=== PATIENT | female | born 1985 | race Caucasian/White ===

== ENCOUNTER 2017-08-14 09:12 | Inpatient (IN) | payer OTHER ==
[2017-08-14 09:29] VITALS: BMI 27.4
--- NOTE | 2017-08-14 09:44 | HP ---
COWS - Scale Resting Pulse: 0= [place] 80 or Below Sweatin= Chills/Flushing Restless Observation: 0= Sits Still Pupil Size: 0= Normal to Room Light Bone or Joint Aches: 1= Mild Discomfort Runny Nose/ Eye Tearin= Runny Nose/Eyes GI Upset > 30mins: 1= Stomach Cramp Tremor Observation: 1= Tremor [place], Not Seen Yawning Observation: 1= 1-2x During Session Anxiety or Irritability: 1=Feels Anxious/Irritable Goose Flesh Skin: 0=Smooth Skin COWS Score: 8 Admission ROS S - HPI Chief Complaint: I'm here for detox Allergies/Adverse Reactions: Allergies Allergy/AdvReac Type Severity Reaction Status Date / Time No Known Allergies Allergy Verified 08/14/17 09:38 History of Present Illness: 31 yo woman here for detox from heroin, also using crack and marijuana. Denies drinking alcohol. One drug related seizure. Tried suboxone program but 'not for me'. First time here for detox but has been elsewhere last time she thinks was in 2014 in [place]. Exam Limitations: Clinical Condition - Ebola screening Have you traveled outside of the country in the last 21 days: No Have you had contact with anyone from an Ebola affected area: No Have you been sick,other than usual withdrawal symptoms: No Do you have a fever: No - Review of Systems Constitutional: Chills, Night Sweats, Changes in sleep EENT: reports: Nose Congestion Respiratory: reports: No Symptoms reported Cardiac: reports: No Symptoms Reported GI: reports: Nausea, Indigestion, Abdominal cramping : reports: No Symptoms Reported Musculoskeletal: reports: Back Pain, Joint Pain, Muscle Pain Integumentary: reports: No Symptoms Reported Neuro: reports: Headache, Seizure Endocrine: reports: No Symptoms Reported Hematology: reports: No Symptoms Reported Psychiatric: reports: Judgement Intact, Mood/Affect Appropiate, Orientated x3, Anxious Other Systems: Reviewed and Negative Patient History - Patient Medical History Hx Anemia: No Hx Asthma: Yes Hx Chronic Obstructive Pulmonary Disease (COPD): No Hx Cancer: No Hx Cardiac Disorders: No Hx Congestive Heart Failure: No Hx Hypertension: No Hx Hypercholesterolemia: No Hx Pacemaker: No HX Cerebrovascular Accident: No Hx Seizures: Yes (drug related 2011) Hx Dementia: No Hx Diabetes: No Hx Gastrointestinal Disorders: No Hx Liver Disease: No Hx Genitourinary Disorders: Yes (prone to UTI due to ureter 'kink') Hx Sexually Transmitted Disorders: No Hx Renal Disease (ESRD): No Hx Thyroid Disease: No Hx Human Immunodeficiency Virus (HIV): No Hx Hepatitis C: No Hx Depression: Yes (history of meds, PTSD) Hx Suicide Attempt: No Hx Bipolar Disorder: No Hx Schizophrenia: No - Patient Surgical History Hx Genitourinary Surgery: Yes (D&C) - PPD History Previous Implant?: Yes Documented Results: Positive w/o proof (never treated, states had CXR which was normal) PPD to be Administered?: No - Reproductive History Patient is a Female of Child Bearing Age (11 -55 yrs old): Yes - Smoking Cessation Smoking history: Current every day smoker Have you smoked in the past 12 months: Yes Aproximately how many cigarettes per day: 10 Initiated information on smoking cessation: Yes 'Breaking Loose' booklet given: 08/14/17 (give on floor) - Substance & Tx. History Hx Alcohol Use: No Hx Substance Use: Yes Substance Use Type: Cocaine, Heroin, Marijuana Hx Substance Use Treatment: Yes (detox, suboxone, rehab) - Substances Abused Heroin Route: Inhalation Frequency: Daily Amount used: 5 bags Age of first use: 23 Date of Last Use: 08/13/17 Crack Route: Smoking Frequency: 1-2 times per week Amount used: 2 bags Age of first use: 31 Date of Last Use: 08/09/17 Marijuana/Hashish Route: Smoking Frequency: Daily Amount used: $5.00 Age of first use: 21 Date of Last Use: 08/13/17 Family Disease History - Family Disease History Family Disease History: Diabetes: Father (living, drug use), Heart Disease: Father, Other: Father, Mother (living,), Sister (one ), Son (two - ages 15, 3), Daughter (two - ages 5, 9) Admission Physical Exam S - Vital Signs Vital Signs: Vital Signs - 24 hr 08/14/17 09:27 Temperature 97.2 F L Pulse Rate 59 L Respiratory 20 Rate Blood Pressure 125/71 - Physical General Appearance: Yes: Nourished, Appropriately Dressed, Moderate Distress HEENTM: Yes: Hearing grossly Normal, Normocephalic, Normal Voice, Pharynx Normal , Rhinorrhea Respiratory: Yes: Normal Breath Sounds, No Respiratory Distress Neck: Yes: No masses,lesions,Nodules, Supple Breast: Yes: Breast Exam Deferred Cardiology: Yes: Regular Rhythm, Regular Rate Abdominal: Yes: Soft Genitourinary: Yes: Within Normal Limits Back: Yes: Decreased Range of Motion Musculoskeletal: Yes: full range of Motion, Gait Steady Extremities: Yes: Normal Inspection, Normal Range of Motion, Non-Tender Neurological: Yes: Fully Oriented, Alert, Normal Mood/Affect, Normal Response Integumentary: Yes: Normal Color, Dry, Warm Lymphatic: Yes: Within Normal Limits - Diagnostic (1) Opiate dependence Current Visit: Yes Status: Chronic Qualifiers: Substance use status: uncomplicated Qualified Code(s): F11.20 - Opioid dependence, uncomplicated; F11.20 - Opioid dependence, uncomplicated; F11.20 - Opioid dependence, uncomplicated (2) Cocaine dependence Current Visit: Yes Status: Chronic Qualifiers: Substance use status: uncomplicated Qualified Code(s): F14.20 - Cocaine dependence, uncomplicated; F14.20 - Cocaine dependence, uncomplicated; F14.20 - Cocaine dependence, uncomplicated (3) Cannabis dependence Current Visit: Yes Status: Chronic (4) Asthma Current Visit: Yes Status: Chronic Qualifiers: Asthma severity: mild Asthma persistence: intermittent Asthma complication type: uncomplicated Qualified Code(s): J45.20 - Mild intermittent asthma, uncomplicated; J45.20 - Mild intermittent asthma, uncomplicated; J45.20 - Mild intermittent asthma, uncomplicated (5) Fibromyalgia Current Visit: Yes Status: Chronic (6) History of seizure Current Visit: Yes Status: Chronic (7) Nicotine dependence Current Visit: Yes Status: Chronic Qualifiers: Nicotine product type: cigarettes Substance use status: uncomplicated Qualified Code(s): F17.210 - Nicotine dependence, cigarettes, uncomplicated; F17.210 - Nicotine dependence, cigarettes, uncomplicated (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
[2017-08-14] MEDS ORDERED: guaiFENesin/D-METHORPHAN HB 10 ML UNIT-DOSE CUPS PO PRN (09:52)
[2017-08-14] MEDS ORDERED: ACETAMINOPHEN 325 MG TABLET (FP) PO PRN (09:52)
[2017-08-14] MEDS ORDERED: MENTHOL/PHENOL 1 EACH UD MM PRN (09:52)
[2017-08-14] MEDS ORDERED: MAGNESIUM HYDROX 2400MG/30ML ORAL SUSPENSION 30 ML CUP PO PRN (09:52)
[2017-08-14] MEDS ORDERED: MAGNESIUM CITRATE 300 ML BOTTLE PO PRN (09:52)
[2017-08-14] MEDS ORDERED: P-EPHED 60MG/TRIPROLIDI 2.5MG TABLET PO PRN (09:52)
[2017-08-14] MEDS ORDERED: LOPERAMIDE HCL 2 MG CAPSULE PO PRN (09:52)
[2017-08-14] MEDS ORDERED: MAG HYDROX/AL HYDROX/SIMETH 30 ML UNIT-DOSE CUP PO PRN (09:52)
[2017-08-14] MEDS ORDERED: METHADONE HCL 10 MG TABLET (FOR DETOX USE ONLY) PO ONE ×2 (10:30→23:00)
[2017-08-14] MEDS: PRENATAL VITAMINS W/ FOLIC ACID TABLET (FP) PO SCH (11:46)
[2017-08-14] MEDS: diazePAM 5 MG TABLET PO PRN ×2 (11:46→17:04)
[2017-08-14] MEDS: ALBUTEROL SO4 18 GM HFA INHALER IH SCH ×4 (11:47→23:10)
[2017-08-14] MEDS: IBUPROFEN 400 MG TABLET (FP) PO PRN (11:52)
[2017-08-14] MEDS: NICOTINE POLACRILEX 4 MG GUM BC PRN (11:53)
[2017-08-14] MEDS: NICOTINE 21 MG/24 HOURS TOPICAL PATCH TD SCH (15:53)
[2017-08-14 16:57] LABS: URINE APPEARANCE SLCLOUDY; URINE BILIRUBIN NEGATIVE (NEGATIVE); URINE BLOOD NEGATIVE (NEGATIVE); URINE COLOR YELLOW; URINE GLUCOSE (UA) NEGATIVE (NEGATIVE); URINE KETONE NEGATIVE (NEGATIVE); URINE NITRITE NEGATIVE (NEGATIVE); URINE PROTEIN NEGATIVE (NEGATIVE); URINE UROBILINOGEN NEGATIVE mg/dL (0.2-1.0)
[2017-08-14 21:53] LABS: URINE LEUK ESTERASE Negative (NEGATIVE)
[2017-08-14] MEDS: THIAMINE HCL 100 MG TABLET (FP) PO SCH (23:10)
[2017-08-14] MEDS: diphenhydrAMINE HCL 50 MG CAPSULE PO PRN (23:12)
[2017-08-15] MEDS: ALBUTEROL SO4 18 GM HFA INHALER IH SCH ×6 (03:06→22:33)
[2017-08-15] MEDS: diazePAM 5 MG TABLET PO PRN ×4 (07:10→22:32)
--- NOTE | 2017-08-15 09:13 | EKG ---
Test Reason : Blood Pressure : / mmHG Vent. Rate : 055 BPM Atrial Rate : 055 BPM P-R Int : 136 ms QRS Dur : 070 ms QT Int : 420 ms P-R-T Axes : 050 034 035 degrees QTc Int : 401 ms SINUS BRADYCARDIA WITH SINUS ARRHYTHMIA SEPTAL INFARCT , AGE UNDETERMINED ABNORMAL ECG NO PREVIOUS ECGS AVAILABLE Confirmed by MLIAGROS HER MD ([id number]) on 08/15/2017 9:13:14 AM Referred By: Confirmed By:MILAGROS HER MD
[2017-08-15] MEDS ORDERED: METHADONE HCL 10 MG TABLET (FOR DETOX USE ONLY) PO ONE (10:00)
[2017-08-15] MEDS: NICOTINE 21 MG/24 HOURS TOPICAL PATCH TD SCH (10:47)
[2017-08-15] MEDS: PRENATAL VITAMINS W/ FOLIC ACID TABLET (FP) PO SCH (10:47)
[2017-08-15] MEDS: IBUPROFEN 400 MG TABLET (FP) PO PRN ×2 (10:50→18:42)
[2017-08-15 11:07] LABS: MCH 31.9 pg (25.7-33.7); MCHC 33.4 g/dl (32.0-36.0); MEAN CELL VOLUME 95.5 fl (80-96); MEAN PLT VOLUME 10.4 fl (7.5-11.1); PLATELET COUNT 245 K/MM3 (134-434); WHITE BLOOD COUNT 6.5 K/mm3 (4.0-10.0)
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
[2017-08-15 11:18] LABS: ALK PHOS 41 U/L (45-117); ANION GAP 6 (8-16); BILIRUBIN,TOTAL 0.4 mg/dL (0.2-1.0); CALCIUM 9.2 mg/dL (8.5-10.1); CO2 28 mmol/L (21-32); GLUCOSE,RANDOM 80 mg/dL (74-106); SGOT/AST 8 U/L (15-37); SGPT/ALT 20 U/L (12-78); TOT PROT 6.9 g/dl (6.4-8.2)
[2017-08-15] MEDS ORDERED: FLU VACCINE QUAD 60 MCG/0.5 ML (MDV 17-18) IM ONE (12:00)
--- NOTE | 2017-08-15 14:51 | PN ---
[facility] COWS - Scale Resting Pulse: 0= [place] 80 or Below Sweatin= Chills/Flushing Restless Observation: 3= Extraneous Movement Pupil Size: 1= Pupils >than Normal Bone or Joint Aches: 2= Severe Diffuse Aches Runny Nose/ Eye Tearin= Runny Nose/Eyes GI Upset > 30mins: 2= Nausea/Diarrhea Tremor Observation of Outstretched Hands: 2= Slight Tremor Visible Yawning Observation: 1= 1-2x During Session Anxiety or Irritability: 2=Irritable/Anxious Goose Flesh Skin: 0=Smooth Skin COWS Score: 16 S Progress Note (SOAP) Subjective: ALERT,IRRITABLE,ANXIOUS,INTERRUPTED SLEEP,TREMOR,PAIN IN THE BODY AND BACK Objective: 08/15/17 14:47 Vital Signs Temperature 98 F 08/15/17 13:56 Pulse Rate 62 08/15/17 13:56 Respiratory Rate 16 08/15/17 13:56 Blood Pressure 116/69 08/15/17 13:56 O2 Sat by Pulse Oximetry (%) EKG SINUS BRADYCARDIA WITH SINUS ARRHYTHMIA 59/MIN INVERTED T IN V2 NO CHEST PAIN,NO SOB,NO DIZZINESS Laboratory Last Values WBC 6.5 K/mm3 (4.0-10.0) 08/15/17 06:14 RBC 4.85 M/mm3 (3.60-5.2) 08/15/17 06:14 Hgb 15.5 GM/dL (10.7-15.3) H 08/15/17 06:14 Hct 46.3 % (32.4-45.2) H 08/15/17 06:14 MCV 95.5 fl (80-96) 08/15/17 06:14 MCH 31.9 pg (25.7-33.7) 08/15/17 06:14 MCHC 33.4 g/dl (32.0-36.0) 08/15/17 06:14 RDW 13.0 % (11.6-15.6) 08/15/17 06:14 Plt Count 245 K/MM3 (134-434) 08/15/17 06:14 MPV 10.4 fl (7.5-11.1) 08/15/17 06:14 Sodium 141 mmol/L (136-145) 08/15/17 06:14 Potassium 4.1 mmol/L (3.5-5.1) 08/15/17 06:14 Chloride 107 mmol/L (98-107) 08/15/17 06:14 Carbon Dioxide 28 mmol/L (21-32) 08/15/17 06:14 Anion Gap 6 (8-16) L 08/15/17 06:14 BUN 10 mg/dL (7-18) 08/15/17 06:14 Creatinine 1.0 mg/dL (0.55-1.02) 08/15/17 06:14 Creat Clearance w eGFR > 60 (>60) 08/15/17 06:14 Random Glucose 80 mg/dL (74-106) 08/15/17 06:14 Calcium 9.2 mg/dL (8.5-10.1) 08/15/17 06:14 Total Bilirubin 0.4 mg/dL (0.2-1.0) 08/15/17 06:14 AST 8 U/L (15-37) L 08/15/17 06:14 ALT 20 U/L (12-78) 08/15/17 06:14 Alkaline Phosphatase 41 U/L (45-117) L 08/15/17 06:14 Total Protein 6.9 g/dl (6.4-8.2) 08/15/17 06:14 Albumin 4.0 g/dl (3.4-5.0) 08/15/17 06:14 Urine Color Yellow 08/14/17 11:43 Urine Appearance Slcloudy 08/14/17 11:43 Urine pH 6.0 (5.0-8.0) 08/14/17 11:43 Ur Specific [place] 1.020 (1.005-1.025) 08/14/17 11:43 Urine Protein Negative (NEGATIVE) 08/14/17 11:43 Urine Glucose (UA) Negative (NEGATIVE) 08/14/17 11:43 Urine Ketones Negative (NEGATIVE) 08/14/17 11:43 Urine Blood Negative (NEGATIVE) 08/14/17 11:43 Urine Nitrite Negative (NEGATIVE) 08/14/17 11:43 Urine Bilirubin Negative (NEGATIVE) 08/14/17 11:43 Urine Urobilinogen Negative mg/dL (0.2-1.0) 08/14/17 11:43 Ur Leukocyte Esterase Negative (NEGATIVE) 08/14/17 11:43 RPR Titer Nonreactive (NONREACTIVE) 08/15/17 06:14 Assessment: 08/15/17 14:50 WITHDRAWAL SYMPTOM Plan: CONTINUE DETOX
[2017-08-15] MEDS: ZOLPIDEM TARTRATE 5 MG TABLET PO PRN (22:32)
[2017-08-15] MEDS: THIAMINE HCL 100 MG TABLET (FP) PO SCH (22:33)
[2017-08-16] MEDS: ALBUTEROL SO4 18 GM HFA INHALER IH SCH ×6 (02:34→22:18)
[2017-08-16] MEDS: diazePAM 5 MG TABLET PO PRN ×5 (02:45→22:18)
--- NOTE | 2017-08-16 08:59 | PN ---
S COWS - Scale Resting Pulse: 0= [place] 80 or Below Sweatin=Flushed/Facial Moisture Restless Observation: 1= Difficult to Sit Still Pupil Size: 0= Normal to Room Light Bone or Joint Aches: 2= Severe Diffuse Aches Runny Nose/ Eye Tearin= Runny Nose/Eyes GI Upset > 30mins: 0= None Tremor Observation of Outstretched Hands: 2= Slight Tremor Visible Yawning Observation: 2= >3x During Session Anxiety or Irritability: 2=Irritable/Anxious Goose Flesh Skin: 3=Piloerection COWS Score: 16 S Progress Note (SOAP) Subjective: interrupted sleep chronic pain to back sweats shakes agitation anxiety Objective: 08/16/17 08:56 Vital Signs Temperature 97.9 F 08/16/17 06:20 Pulse Rate 56 L 08/16/17 06:20 Respiratory Rate 16 08/16/17 06:20 Blood Pressure 99/66 08/16/17 06:20 O2 Sat by Pulse Oximetry (%) Laboratory Tests 08/14/17 08/15/17 08/15/17 11:43 06:14 06:14 WBC 6.5 RBC 4.85 Hgb 15.5 H Hct 46.3 H MCV 95.5 MCH 31.9 MCHC 33.4 RDW 13.0 Plt Count 245 MPV 10.4 Sodium 141 Potassium 4.1 Chloride 107 Carbon Dioxide 28 Anion Gap 6 L BUN 10 Creatinine 1.0 Creat Clearance w eGFR > 60 Random Glucose 80 Calcium 9.2 Total Bilirubin 0.4 AST 8 L ALT 20 Alkaline Phosphatase 41 L Total Protein 6.9 Albumin 4.0 Urine Color Yellow Urine Appearance Slcloudy Urine pH 6.0 Ur Specific [place] 1.020 Urine Protein Negative Urine Glucose (UA) Negative Urine Ketones Negative Urine Blood Negative Urine Nitrite Negative Urine Bilirubin Negative Urine Urobilinogen Negative Ur Leukocyte Esterase Negative RPR Titer 08/15/17 06:14 WBC RBC Hgb Hct MCV MCH MCHC RDW Plt Count MPV Sodium Potassium Chloride Carbon Dioxide Anion Gap BUN Creatinine Creat Clearance w eGFR Random Glucose Calcium Total Bilirubin AST ALT Alkaline Phosphatase Total Protein Albumin Urine Color Urine Appearance Urine pH Ur Specific [place] Urine Protein Urine Glucose (UA) Urine Ketones Urine Blood Urine Nitrite Urine Bilirubin Urine Urobilinogen Ur Leukocyte Esterase RPR Titer Nonreactive aaox3 ambulating no acute distress Assessment: 08/16/17 08:58 withdrawal sx Plan: continue detox increase fluids flexiril prn motrin 800mg lidocaine patch
[2017-08-16] MEDS ORDERED: METHADONE HCL 5 MG TABLET (FOR DETOX USE ONLY) PO ONE (10:00)
[2017-08-16] MEDS: IBUPROFEN 400 MG TABLET (FP) PO PRN ×2 (10:26→20:27)
[2017-08-16] MEDS: PRENATAL VITAMINS W/ FOLIC ACID TABLET (FP) PO SCH (10:26)
[2017-08-16] MEDS: NICOTINE 21 MG/24 HOURS TOPICAL PATCH TD SCH (10:27)
[2017-08-16] MEDS: CYCLOBENZAPRINE HCL 10 MG TABLET (FP) PO PRN ×2 (10:27→22:16)
[2017-08-16] MEDS: LIDOCAINE 5% TOPICAL PATCH TP SCH (10:27)
[2017-08-16] MEDS: NICOTINE POLACRILEX 4 MG GUM BC PRN (12:37)
[2017-08-16] MEDS: hydrOXYzine PAMOATE 50 MG CAPSULE (FP) PO PRN (13:08)
[2017-08-16] MEDS: LIDOCAINE PATCH REMOVAL MC SCH (21:26)
[2017-08-16] MEDS: ZOLPIDEM TARTRATE 5 MG TABLET PO PRN (22:16)
[2017-08-16] MEDS: THIAMINE HCL 100 MG TABLET (FP) PO SCH (22:18)
[2017-08-17] MEDS: CYCLOBENZAPRINE HCL 10 MG TABLET (FP) PO PRN ×3 (05:46→22:06)
[2017-08-17] MEDS: ALBUTEROL SO4 18 GM HFA INHALER IH SCH ×5 (05:46→22:08)
[2017-08-17] MEDS: diazePAM 5 MG TABLET PO PRN (05:46)
[2017-08-17] MEDS ORDERED: METHADONE HCL 5 MG TABLET (FOR DETOX USE ONLY) PO ONE (10:00)
[2017-08-17] MEDS: PRENATAL VITAMINS W/ FOLIC ACID TABLET (FP) PO SCH (10:47)
[2017-08-17] MEDS: LIDOCAINE 5% TOPICAL PATCH TP SCH (10:47)
[2017-08-17] MEDS: NICOTINE 21 MG/24 HOURS TOPICAL PATCH TD SCH (10:48)
[2017-08-17] MEDS: IBUPROFEN 400 MG TABLET (FP) PO PRN ×2 (10:49→22:07)
--- NOTE | 2017-08-17 12:54 | PN ---
[facility] Progress Note (SOAP) Subjective: Patient states " I am doing fine and I want to go home tomorrow." Objective: 08/17/17 13:21 Vital Signs Temperature 96.8 F L 08/17/17 10:00 Pulse Rate 70 08/17/17 10:00 Respiratory Rate 18 08/17/17 10:00 Blood Pressure 104/69 08/17/17 10:00 O2 Sat by Pulse Oximetry (%) Laboratory Last Values WBC 6.5 K/mm3 (4.0-10.0) 08/15/17 06:14 RBC 4.85 M/mm3 (3.60-5.2) 08/15/17 06:14 Hgb 15.5 GM/dL (10.7-15.3) H 08/15/17 06:14 Hct 46.3 % (32.4-45.2) H 08/15/17 06:14 MCV 95.5 fl (80-96) 08/15/17 06:14 MCH 31.9 pg (25.7-33.7) 08/15/17 06:14 MCHC 33.4 g/dl (32.0-36.0) 08/15/17 06:14 RDW 13.0 % (11.6-15.6) 08/15/17 06:14 Plt Count 245 K/MM3 (134-434) 08/15/17 06:14 MPV 10.4 fl (7.5-11.1) 08/15/17 06:14 Sodium 141 mmol/L (136-145) 08/15/17 06:14 Potassium 4.1 mmol/L (3.5-5.1) 08/15/17 06:14 Chloride 107 mmol/L (98-107) 08/15/17 06:14 Carbon Dioxide 28 mmol/L (21-32) 08/15/17 06:14 Anion Gap 6 (8-16) L 08/15/17 06:14 BUN 10 mg/dL (7-18) 08/15/17 06:14 Creatinine 1.0 mg/dL (0.55-1.02) 08/15/17 06:14 Creat Clearance w eGFR > 60 (>60) 08/15/17 06:14 Random Glucose 80 mg/dL (74-106) 08/15/17 06:14 Calcium 9.2 mg/dL (8.5-10.1) 08/15/17 06:14 Total Bilirubin 0.4 mg/dL (0.2-1.0) 08/15/17 06:14 AST 8 U/L (15-37) L 08/15/17 06:14 ALT 20 U/L (12-78) 08/15/17 06:14 Alkaline Phosphatase 41 U/L (45-117) L 08/15/17 06:14 Total Protein 6.9 g/dl (6.4-8.2) 08/15/17 06:14 Albumin 4.0 g/dl (3.4-5.0) 08/15/17 06:14 Urine Color Yellow 08/14/17 11:43 Urine Appearance Slcloudy 08/14/17 11:43 Urine pH 6.0 (5.0-8.0) 08/14/17 11:43 Ur Specific [place] 1.020 (1.005-1.025) 08/14/17 11:43 Urine Protein Negative (NEGATIVE) 08/14/17 11:43 Urine Glucose (UA) Negative (NEGATIVE) 08/14/17 11:43 Urine Ketones Negative (NEGATIVE) 08/14/17 11:43 Urine Blood Negative (NEGATIVE) 08/14/17 11:43 Urine Nitrite Negative (NEGATIVE) 08/14/17 11:43 Urine Bilirubin Negative (NEGATIVE) 08/14/17 11:43 Urine Urobilinogen Negative mg/dL (0.2-1.0) 08/14/17 11:43 Ur Leukocyte Esterase Negative (NEGATIVE) 08/14/17 11:43 RPR Titer Nonreactive (NONREACTIVE) 08/15/17 06:14 Assessment: 08/17/17 13:24 Heroin withdrawal symptoms Plan: Continue detox
[2017-08-17] MEDS: hydrOXYzine PAMOATE 50 MG CAPSULE (FP) PO PRN (13:57)
[2017-08-17] MEDS: ZOLPIDEM TARTRATE 5 MG TABLET PO PRN (21:28)
[2017-08-17] MEDS: LIDOCAINE PATCH REMOVAL MC SCH (22:07)
[2017-08-17] MEDS: THIAMINE HCL 100 MG TABLET (FP) PO SCH (22:08)
[2017-08-17 22:58] VITALS: TEMP 97.5
[2017-08-18] MEDS: diphenhydrAMINE HCL 50 MG CAPSULE PO PRN (01:23)
[2017-08-18] MEDS: ALBUTEROL SO4 18 GM HFA INHALER IH SCH ×2 (01:48→07:02)
[2017-08-18] MEDS: hydrOXYzine PAMOATE 50 MG CAPSULE (FP) PO PRN (05:25)
[2017-08-18 06:24] VITALS: BP 95/67; PULSE 88
[2017-08-18] MEDS ORDERED: METHADONE HCL 5 MG TABLET (FOR DETOX USE ONLY) PO SCH (07:15)
--- NOTE | 2017-08-18 09:27 | DS ---
[facility] Detox Discharge Summary Admission Date: 08/14/17 Discharge Date: 08/18/17 - History Present History: Cannabis Dependence, Cocaine Dependence, Opioid Dependence - Physical Exam Results Vital Signs: Vital Signs Temperature 97.5 F L 08/18/17 06:00 Pulse Rate 88 08/18/17 06:00 Respiratory Rate 18 08/18/17 06:00 Blood Pressure 95/67 08/18/17 06:00 O2 Sat by Pulse Oximetry (%) - Treatment Hospital Course: Detox Protocol Followed, Detoxed Safely, Responded well, Discharged Condition Good, Rehab Referral Accepted - Medication Discharge Medications: Ambulatory Orders Albuterol Sulfate Inhaler - [Ventolin Hfa Inhaler -] 2 inh PO Q4H 08/14/17 - Diagnosis (1) Dysthymia Status: Acute (2) Opioid dependence with withdrawal Status: Chronic (3) PTSD (post-traumatic stress disorder) Status: Acute (4) Substance-induced anxiety disorder Status: Acute (5) Substance-induced sleep disorder Status: Acute (6) Asthma Status: Chronic Qualifiers: Asthma severity: mild Asthma persistence: intermittent Asthma complication type: uncomplicated Qualified Code(s): J45.20 - Mild intermittent asthma, uncomplicated; J45.20 - Mild intermittent asthma, uncomplicated; J45.20 - Mild intermittent asthma, uncomplicated (7) Cannabis dependence Status: Chronic (8) Cocaine dependence Status: Chronic Qualifiers: Substance use status: uncomplicated Qualified Code(s): F14.20 - Cocaine dependence, uncomplicated; F14.20 - Cocaine dependence, uncomplicated; F14.20 - Cocaine dependence, uncomplicated (9) Fibromyalgia Status: Chronic (10) History of seizure Status: Chronic (11) Nicotine dependence Status: Chronic Qualifiers: Nicotine product type: cigarettes Substance use status: uncomplicated Qualified Code(s): F17.210 - Nicotine dependence, cigarettes, uncomplicated; F17.210 - Nicotine dependence, cigarettes, uncomplicated (12) Opiate dependence Status: Chronic Qualifiers: Substance use status: uncomplicated Qualified Code(s): F11.20 - Opioid dependence, uncomplicated; F11.20 - Opioid dependence, uncomplicated; F11.20 - Opioid dependence, uncomplicated (13) PPD positive Status: Chronic - AMA Did Patient Leave Against Medical Advice: No
[2017-08-18] MEDS ORDERED: METHADONE HCL 10 MG TABLET (FOR DETOX USE ONLY) PO ONE (10:00)
[2017-08-19] MEDS ORDERED: METHADONE HCL 5 MG TABLET (FOR DETOX USE ONLY) PO ONE (06:00)
== END 2017-08-18 07:49 | disposition home or self-care (01) | DRG 773 ==
LOC: YASAS 09:12 → Y6N 10:59
PROVIDERS: ADMIT Internal Medicine; ATTEND Internal Medicine
PROC: HZ2ZZZZ Detoxification Services for Substance Abuse Treatment (ICD-10-PCS; principal; 2017-08-14)
DX: F11.23 Opioid dependence with withdrawal (principal); F14.20 Cocaine dependence, uncomplicated; F12.20 Cannabis dependence, uncomplicated; F17.210 Nicotine dependence, cigarettes, uncomplicated; F19.282 Other psychoactive substance dependence with psychoactive substance-induced sleep disorder; F19.24 Other psychoactive substance dependence with psychoactive substance-induced mood disorder; F34.1 Dysthymic disorder; J45.20 Mild intermittent asthma, uncomplicated; M79.7 Fibromyalgia; R76.11 Nonspecific reaction to tuberculin skin test without active tuberculosis; Z86.69 Personal history of other diseases of the nervous system and sense organs; Z87.440 Personal history of urinary (tract) infections
CPT/HCPCS: 36415; 71020-TC; 80053; 81003; 85027; 86593; 90688; 93005; 93010; G0008